=== PATIENT | female | born 1945 | race Caucasian/White ===

== ENCOUNTER → 2017-09-12 | Outpatient (CLI) | payer MEDICARE ==
[~2017-09-12] MED LIST: DOCU-180 PO; TRAM50TA2 PO
== END | disposition home or self-care (01) ==
LOC: CFH 11:30
PROVIDERS: ATTEND Nurse Practitioner Family
DX: M77.32 Calcaneal spur, left foot (principal); M77.31 Calcaneal spur, right foot; M25.774 Osteophyte, right foot; M25.775 Osteophyte, left foot